=== PATIENT | male | born 1970 ===

== ENCOUNTER 2019-03-19 05:58 | Emergency (ER) | payer SELFPAY ==
[2019-03-19] MEDS ORDERED: Magnesium 2 GM/50 ML BAG (IN WATER) ONE (06:14)
[2019-03-19] MEDS ORDERED: cefTRIAXone\\ROCEPHIN 1 GM VIAL ONE (06:14)
[2019-03-19] MEDS ORDERED: Dexamethasone 10 MG/ML VIAL ONE (06:14)
[2019-03-19] MEDS ORDERED: Albuterol Sulfate 2.5 mg/0.5 ml Neb ONE ×2 (06:15)
[2019-03-19 06:47] LABS: AST (SGOT) 23 U/L (5-34); Bilirubin, Total 0.8 mg/dL (0.2-1.2); Calcium 8.9 mg/dL (7.8-10.44); Chloride 100 mmol/L (98-107); Potassium 4.3 mmol/L (3.5-5.1); Sodium 133 mmol/L (136-145)
[2019-03-19 07:09] LABS: ALT (SGPT) 17 U/L (8-55); Alkaline Phosphatase 91 U/L (40-150); Anion Gap 17 mmol/L (10-20); BUN (Urea Nitrogen) 7 mg/dL (8.9-20.6); CK (CPK) 603 U/L (30-200); Calc. Creatinine Clearance 0 mL/min (70-130); Carbon Dioxide 23 mmol/L (22-29); Estimated GFR-MDRD Greater than 90; Glucose 123 mg/dL (70-105); Lipase 5 U/L (8-78)
[2019-03-19 07:31] LABS: Band 6 % (5-11); Eosinophils 6 % (0-10); Hemoglobin 15.5 g/dL (14.0-18.0); Lymphocytes 21 % (21-51); MDiff Complete? YES; Mean Corpuscular HGB CONC 33.3 g/dL (32.0-36.0); Mean Corpuscular Hemoglobin 29.9 pg (27.0-31.0); Mean Corpuscular Volume 89.6 fL (78.0-98.0); Mean Platelet Volume 6.7 fL (7.4-10.4); Monocytes 9 % (0-10); Neutrophil 57 % (42-75); Platelet Count 205 thou/uL (130-400); Platelet Morphology Comment Appears Adequate; RBC Distribution Width 12.7 % (11.5-14.5); RBC Morphology Normal; Red Blood Cell (RBC) Count 5.19 mill/uL (4.70-6.10); White Blood Cell (WBC) Count 9.9 thou/uL (4.8-10.8)
--- NOTE | 2019-03-19 07:52 | RAD ---
Chest AP view INDICATION: Shortness of breath COMPARISON: January 15, 2009 FINDINGS: Lungs:The lungs are clear Cardiac silhouette pulmonary vasculature:There is stable cardiomegaly. Pulmonary vasculature appears within normal limits. Pleural spaces:No pleural effusion or pneumothorax is demonstrated. Upper abdomen:No abnormality seen. Osseous structures: No acute osseous abnormality. IMPRESSION: Stable cardiomegaly. No definite acute cardiopulmonary abnormality.
== END 2019-03-19 07:23 | disposition home or self-care (01) ==
LOC: ERS 05:58
DX: J20.9 Acute bronchitis, unspecified (principal); F17.220 Nicotine dependence, chewing tobacco, uncomplicated
CPT/HCPCS: 36415; 71045; 80053; 82550; 83690; 83880; 84484; 85025; 87040; 87149; 93005; 94640; 96365; 96367; 96375; J0696; J1100; J3475; J7611; J7620